=== PATIENT | female | born 1935 | race Caucasian/White ===

== ENCOUNTER 2022-01-23 07:58 | Day surgery (SDC) | payer OTHER ==
[2022-01-21 09:49] VITALS: BMI 25.7
[2022-01-23] MEDS ORDERED: BSS (NA/CA/MG/K) BALANCED SALT SOLUTION OPHTH SOLN 15 ML BOTTLE ONE ×2 (08:19→10:10)
[2022-01-23] MEDS ORDERED: NEO/POLYMYX B SULF/DEXAMETH OPHTHALMIC 5ML BOTTLE ONE ×2 (08:19→10:10)
[2022-01-23] MEDS ORDERED: LIDOCAINE 1% P/F 10 MG/ML VIAL ONE ×2 (08:19→10:10)
[2022-01-23] MEDS ORDERED: TETRACAINE 0.5% OPHTH SOLN 2 ML BOTTLE ONE (08:19)
[2022-01-23] MEDS ORDERED: CARBACHOL 0.01% INTRA-OCULAR 1.5 ML VIAL ONE ×2 (08:19→10:10)
[2022-01-23 08:35] VITALS: RESP 16; TEMP 97.8
[2022-01-23] MEDS: CIPROFLOXACIN 0.3% EYE DROPS 5 ML BOTTLE ONE ×3 (08:35→08:45)
[2022-01-23] MEDS: PHENYLEPHRINE 2.5% OPHTH SOLN 15 ML BOTTLE ONE ×3 (08:35→08:45)
[2022-01-23] MEDS: TROPICAMIDE 1% OPHTH SOLN 15 ML BOTTLE ONE ×3 (08:35→08:45)
[2022-01-23] MEDS: CYCLOPENTOLATE 2% OPHTH SOLN 2 ML BOTTLE ONE ×3 (08:35→08:45)
[2022-01-23] MEDS ORDERED: MIDAZOLAM HCL 2 MG/2 ML SINGLE DOSE VIAL ONE ×2 (09:55→10:19)
[2022-01-23 11:13] VITALS: PULSE 76
[2022-01-23 11:28] VITALS: BP 142/78
== END 2022-01-23 11:10 | disposition home or self-care (01) ==
LOC: FASU 07:58
PROVIDERS: ATTEND Ophthalmology
PROC: 08RK3JZ Replacement of Left Lens with Synthetic Substitute, Percutaneous Approach (ICD-10-PCS; principal; 2022-01-23 10:01)
DX: H26.8 Other specified cataract (principal); H21.542 Posterior synechiae (iris), left eye
CPT/HCPCS: 66982; V2632; 82962